=== PATIENT | male | born 1975 | race Caucasian/White ===

== ENCOUNTER 2022-05-07 17:40 | Emergency (ER) | payer BC, OTHER ==
[~2022-05-07] VITALS: Ht 187.9 cm; Wt 122.5 kg
[2022-05-07] MEDS ORDERED: NS IV 1000 ML 1,000 ML IV ONE (18:00)
[2022-05-07] MEDS ORDERED: IOHEXOL 350 MG/ML 100 ML (OMNIPAQUE 350) VIAL IV ONE (18:00)
[2022-05-07] MEDS ORDERED: NS 100 ML (IVPB) BAG IV ONE (18:00)
[2022-05-07] MEDS ORDERED: HOLD METFORMIN - RECEIVED CONTRAST 20 ML VIAL IV SCH (18:00)
[2022-05-07 18:04] LABS: BASOPHILS % (AUTO) 0 % (0-10); EOSINOPHILS # (AUTO) 0.1 10^3/uL (0.0-0.3); EOSINOPHILS % (AUTO) 1 % (0-10); HEMATOCRIT 42 % (40-54); HEMOGLOBIN 13.6 g/dL (13.3-17.7); LYMPHOCYTES # (AUTO) 3.6 10^3/uL (1.0-4.0); LYMPHOCYTES % (AUTO) 28 % (12-44); MEAN CORPUSCULAR HEMOGLOBIN 30 pg (25-34); MEAN CORPUSCULAR HGB CONC 33 g/dL (32-36); MEAN CORPUSCULAR VOLUME 91 fL (80-99); MONOCYTES # (AUTO) 0.8 10^3/uL (0.0-1.0); MONOCYTES % (AUTO) 7 % (0-12); NEUTROPHILS # (AUTO) 7.9 10^3/uL (1.8-7.8); NEUTROPHILS % (AUTO) 62 % (42-75); PLATELET COUNT 235 10^3/uL (130-400); WHITE BLOOD COUNT 12.8 10^3/uL (4.3-11.0)
[2022-05-07 18:08] LABS: POTASSIUM 3.9 MMOL/L (3.6-5.0)
[2022-05-07 18:10] LABS: CALCIUM 9.1 MG/DL (8.5-10.1)
[2022-05-07 18:11] LABS: TOTAL PROTEIN 7.1 GM/DL (6.4-8.2)
[2022-05-07 18:13] LABS: BILIRUBIN,TOTAL 0.3 MG/DL (0.1-1.0)
[2022-05-07 18:14] LABS: CREATININE SERUM 0.9 MG/DL (0.60-1.30)
[2022-05-07] MEDS ORDERED: fentaNYL INJ 100 MCG/2 ML AMP IVP ONE (18:30)
--- NOTE | 2022-05-07 18:30 | ED Trauma-Multisystem ---
General Chief Complaint: Trauma-Non Activation Stated Complaint: BACK PAIN Nursing Triage Note: ARRIVES TO ROOM 4 VIA EMS WITH A C/O BEING "HEADBUTTED BY A COW." A FEW TIMES. HAVING DIFFICULTY BREATHING EASILY IS CLAMMY AND SWEATING UPON ARRIVAL. [address] TO LEFT AC BY EMS, WARM FLUID INFUSING. Source of Information: Patient Exam Limitations: No Limitations (CHRIS PEOPLES MD) History of Present Illness Date Seen by Provider: May 07, 2022 Time Seen by Provider: 17:41 Initial Comments This 46-year-old gentleman presents to the emergency room via EMS after being head butted and pinned by a cow against concrete wall multiple times. 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 This cow weighing approximately 1000 pounds turned on him and knocked him to the ground. She then repeatedly head butted him in his head and torso against a brick wall. He has multiple abrasions and swollen contusions on his scalp. He complains of pain in the left lateral chest and upper abdomen. He has no significant extremity injuries. He denies any loss of consciousness. His reports that he appeared to nearly lose consciousness. He was given fentanyl 50 mcg in route by EMS. He reports the pain as 8/10. (CHRIS PEOPLES MD) Allergies and Home Medications Allergies Coded Allergies: No Known Drug Allergies (Unverified , 05/07/22) Patient Home Medication List Home Medication List Reviewed: Yes (CHRIS PEOPLES MD) Ondansetron (Ondansetron Odt) 4 Mg Tab.rapdis, 4 MG SL Q8H PRN for NAUSEA/VOMITING Prescribed by: VALARIE ARAUJO on 05/07/222113 Oxycodone HCl (Oxycodone HCl) 5 Mg Tablet, 5 MG PO Q6H PRN for PAIN-MODERATE TO SEVERE Prescribed by: VALARIE ARAUJO on 05/07/222113 Review of Systems Review of Systems Constitutional: no symptoms reported Eyes: No Symptoms Reported Ears: No Symptoms Reported Nose: No Symptoms Reported Mouth: No Symptoms Reported Throat: No Symptoms to Report Respiratory: no symptoms reported Cardiovascular: No Symptoms Reported Gastrointestinal: see HPI Genitourinary: no symptoms reported Musculoskeletal: see HPI Skin: see HPI Psychiatric/Neurological: See HPI (CHRIS PEOPLES MD) Past Pcvqhos-Siknal-Ulyejf Hx Patient Social History Tobacco Use?: No Use of E-Cig and/or Vaping dev: No Substance use?: No Alcohol Use?: Yes Alcohol type: Beer Alcohol Frequency: Couple times a week (CHRIS PEOPLES MD) Immunizations Up To Date Influenza Vaccine Up-to-Date: Yes; Up-to-Date First/Initial COVID19 Vaccinat: 21 Second COVID19 Vaccination Keith: 21 (CHRIS PEOPLES MD) Past Medical History Surgery/Hospitalization HX: htn, niddm Surgeries: No Respiratory: No Cardiac: Yes Hypertension Neurological: No Genitourinary: No Gastrointestinal: No Musculoskeletal: No Endocrine: Yes Diabetes, Non-Insulin dep HEENT: No Cancer: No Did You Recieve Any Treatments: No Psychosocial: No Integumentary: No (CHRIS PEOPLES MD) Physical Exam Vital Signs Vital Signs - First Documented 05/07/22 17:41 Pulse 85 Resp 16 B/P (MAP) 103/90 (94) Pulse Ox 97 O2 Delivery Room Air (VALARIE ARAUJO MD) Height, Weight, BMI Height: '" Weight: lbs. oz. kg; 34.00 BMI Method: General Appearance: No Apparent Distress, Mild Distress Head: Other (Multiple contusions and abrasions on the scalp) Ears, Nose, Throat: No Dental Injury, Other (Mild bruising at the bridge of the nose) Neck: Full Range of Motion, Normal Inspection, Non Tender Cardiovascular: Regular Rate, Rhythm, No Edema, No Murmur Respiratory: Lungs Clear, Normal Breath Sounds, No Accessory Muscle Use Gastrointestinal: Normal Bowel Sounds, Soft; No Distended; Tenderness (Upper abdomen) Extremity: Normal Inspection, No Pedal Edema Neurologic/Psychiatric: Alert, Oriented x3, No Motor/Sensory Deficits, Normal Mood/Affect Skin: Normal Color, Warm/Dry, Other (Abrasions on the scalp) (CHRIS WILSON MD) [place] Coma Score Best Eye Response (Gabriel): (4) Open Spontaneously Best Verbal Response (Gabriel): (5) Oriented Best Motor Response ([place]): (6) Obeys Commands [place] Total: 15 (CHRIS PEOPLES MD) Progress/Results/Core Measures Results/Orders Lab Results Laboratory Tests Test 05/07/22 17:45 05/07/22 19:20 Range/Units White Blood Count 12.8 H 4.3-11.0 10^3/uL Red Blood Count 4.60 4.30-5.52 10^6/uL Hemoglobin 13.6 13.3-17.7 g/dL Hematocrit 42 40-54 % Mean Corpuscular Volume 91 80-99 fL Mean Corpuscular Hemoglobin 30 25-34 pg Mean Corpuscular Hemoglobin Concent 33 32-36 g/dL Red Cell Distribution Width 13.5 10.0-14.5 % Platelet Count 235 130-400 10^3/uL Mean Platelet Volume 11.0 9.0-12.2 fL Immature Granulocyte % (Auto) 3 % Neutrophils (%) (Auto) 62 42-75 % Lymphocytes (%) (Auto) 28 12-44 % Monocytes (%) (Auto) 7 0-12 % Eosinophils (%) (Auto) 1 0-10 % Basophils (%) (Auto) 0 0-10 % Neutrophils # (Auto) 7.9 H 1.8-7.8 10^3/uL Lymphocytes # (Auto) 3.6 1.0-4.0 10^3/uL Monocytes # (Auto) 0.8 0.0-1.0 10^3/uL Eosinophils # (Auto) 0.1 0.0-0.3 10^3/uL Basophils # (Auto) 0.0 0.0-0.1 10^3/uL Immature Granulocyte # (Auto) 0.4 H 0.0-0.1 10^3/uL Sodium Level 139 135-145 MMOL/L Potassium Level 3.9 3.6-5.0 MMOL/L Chloride Level 102 98-107 MMOL/L Carbon Dioxide Level 25 21-32 MMOL/L Anion Gap 12 5-14 MMOL/L Blood Urea Nitrogen 18 7-18 MG/DL Creatinine 0.90 0.60-1.30 MG/DL Estimat Glomerular Filtration Rate 105 BUN/Creatinine Ratio 20 Glucose Level 126 H 70-105 MG/DL Calcium Level 9.1 8.5-10.1 MG/DL Corrected Calcium 9.1 8.5-10.1 MG/DL Total Bilirubin 0.3 0.1-1.0 MG/DL Aspartate Amino Transf (AST/SGOT) 26 5-34 U/L Alanine Aminotransferase (ALT/SGPT) 26 0-55 U/L Alkaline Phosphatase 87 40-136 U/L Total Protein 7.1 6.4-8.2 GM/DL Albumin 4.0 3.2-4.5 GM/DL Urine Color YELLOW Urine Clarity SL CLOUDY Urine pH 6.0 5-9 Urine Specific [place] 1.015 L 1.016-1.022 Urine Protein 2+ H NEGATIVE Urine Glucose (UA) 3+ H NEGATIVE Urine Ketones NEGATIVE NEGATIVE Urine Nitrite NEGATIVE NEGATIVE Urine Bilirubin NEGATIVE NEGATIVE Urine Urobilinogen 0.2 < = 1.0 MG/DL Urine Leukocyte Esterase NEGATIVE NEGATIVE Urine RBC (Auto) 3+ H NEGATIVE Urine RBC TNTC H /HPF Urine WBC 2-5 /HPF Urine Squamous Epithelial Cells NONE /HPF Urine Crystals NONE /LPF Urine Bacteria FEW H /HPF Urine Casts NONE /LPF Urine Mucus NEGATIVE /LPF Urine Culture Indicated YES (VALARIE ARAUJO MD) My Orders Orders - VALARIE ARAUJO MD Fentanyl Inj (Sublimaze Injection) (05/07/22 18:30) Dipht,Pertuss(Acell),Tet Adult (Boostrix (05/07/22 19:30) Oxycodone Immediate Rel Tablet (Oxyir Ta (05/07/22 19:30) Ondansetron Injection (Zofran Injectio (05/07/22 20:15) Rx-Oxycodone/Apap 5-325 Mg (Rx-Percocet (05/07/22 21:15) Rx-Ondansetron Po (Rx-Zofran Po) (05/07/22 21:15) (VALARIE ARAUJO MD) Medications Given in ED Current Medications Medications Dose Ordered Sig/Annabel Route Start Time Stop Time Status Last Admin Dose Admin Diphtheria/ Tetanus/Acell Pertussis 0.5 ml ONCE ONCE IM 05/07/22 19:30 05/07/22 19:31 DC 05/07/22 20:01 0.5 ML Fentanyl Citrate 50 mcg ONCE ONCE IVP 05/07/22 18:30 05/07/22 18:31 DC 05/07/22 18:35 50 MCG Iohexol 100 ml ONCE ONCE IV 05/07/22 18:00 05/07/22 18:01 DC 05/07/22 17:58 100 ML Ondansetron HCl 8 mg ONCE ONCE IVP 05/07/22 20:15 05/07/22 20:16 DC 05/07/22 20:13 8 MG Oxycodone HCl 10 mg ONCE ONCE PO 05/07/22 19:30 05/07/22 19:31 DC 05/07/22 20:00 10 MG Oxycodone/ Acetaminophen 1 ea Q6H PRN PO 05/07/22 21:15 05/07/22 21:42 DC 05/07/22 21:35 1 EA Sodium Chloride 100 ml ONCE ONCE IV 05/07/22 18:00 05/07/22 18:01 DC 05/07/22 17:58 80 ML Sodium Chloride 1,000 ml @ 0 mls/hr Q0M ONCE IV 05/07/22 18:00 05/07/22 18:01 DC 05/07/22 18:35 0 MLS/HR (VALARIE ARAUJO MD) Vital Signs/I&O 05/07/22 05/07/22 17:41 21:40 Pulse 85 92 Resp 16 20 B/P (MAP) 103/90 (94) 125/82 Pulse Ox 97 97 O2 Delivery Room Air Room Air 05/08/22 00:00 Intake Total 1400 ml Balance 1400 ml (VALARIE ARAUJO MD) Blood Pressure Mean: 94 Progress Progress Note : Time: 18:29 Progress Note Patient was interviewed and examined upon arrival. He declined anything further for pain control. He was alert and oriented. Due to the mechanism of injury and his pain level, CT imaging from head through pelvis was ordered. Care of this patient is being transitioned to Dr. Araujo at this time. 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 Patient was shoved up against a concrete wall by a full-size cow. No loss of consciousness reported. Patient complaining of the majority of pain in the left upper quadrant. Labs ordered prior to me assuming care include CBC, chemistry, urinalysis. Also CTs of the head and cervical spine ordered as well as CTs of the chest abdomen and pelvis with IV contrast. Physical examination pertinent for right temporoparietal scalp contusion, left forehead abrasion. Tenderness and pain to the left lateral chest and left upper quadrant. No c repitance to the chest wall. Breath sounds equal, respirations even and unlabored. Heart is regular. Mild amount of ecchymosis developing over the soft tissues of the left upper quadrant. Abdomen is soft, nondistended bowel sounds are present. Patient was not rolled, I did not palpate the spine this had been done prior to my arrival and was not repeated for patient comfort. P sneha is complaining of low back pain. No extremity pain, moves all extremities equally. No joint swelling or deformity. Labs reviewed, CBC normal with slightly elevated white blood cell count at 12,000. Chemistry unremarkable. Urinalysis positive for red blood cells. CT of the head and cervical spine unremarkable. CT of the chest abdomen and pelvis demonstrates left lateral rib 11 nondisplaced fracture. He has a 10% compression fracture at T12 with no retropulsed fragments. Also L2 left transverse process fracture nondisplaced. Also findings consistent with mild left kidney contusion. Patient's vital signs have been stable throughout, treated with IV pain medication, fentanyl as well as oral oxycodone. He was given Zofran for nausea as well as IV fluids. Patient achieved moderate relief of pain. Recommended close follow-up with his primary care physician. Pain medications and nausea medications sent for home. Work note for the next week provided. Return precautions given he verbalized understanding. Patient was able to ambulate from the department. (VALARIE ARAUJO MD) Diagnostic Imaging Diagonstic Imaging: CT Comments [facility], [place] NAME: MARCOS RAMIREZ [facility] REC#: [id number] PT STATUS: REG ER : 1975 PHYSICIAN: CHRIS PEOPLES MD ADMIT DATE: 05/07/22/ER Draft Date of Exam:05/07/22 CT HEAD/CERVICAL SPINE WO Clinical indication: Patient was head butted by a cow a few times. Patient having difficulty breathing. Exam: Head CT without IV contrast with sagittal and coronal reformations. Axial CT scan of the cervical spine with sagittal and coronal reformations. Auto Exposure Controls were utilized during the CT exam to meet ALARA standards for radiation dose reduction. Comparison: None. Findings: Head CT: There is no evidence of acute cerebral infarct, intracranial hemorrhage or gross mass effect. The brain parenchymal volume appears appropriate for patient's age. There is normal hendricks-white matter distinction. There is no significant midline shift or herniation. There is no evidence of hydrocephalus. The basal cisterns are unremarkable. There is a small amount of extracranial soft tissue swelling involving the left anterior aspect of the head and right lateral aspect of the head. There is no skull fracture. Otherwise, the skull, extracranial soft tissue and orbits are unremarkable. There is mild mucosal thickening involving both maxillary sinuses. Temporal bones show no significant abnormality. Cervical spine CT: There is no acute cervical spine fracture or dislocation. There are hypertrophic spurs involving the cervical spine and facet arthropathy. There is no significant bony central canal or neural foramen narrowing. There is no significant neck soft tissue abnormality. The visualized upper lung murcia are clear. Impression: 1: There is no evidence of acute intracranial process. There is no intracranial hemorrhage. 2: There are small areas of extracranial soft tissue swelling involving the left lateral anterior aspect of the head and right side of the head. There is no skull fracture. 3: There is cervical spine degenerative disease with no acute fracture or dislocation. Dictated on workstation # [id number] Dict: 05/07/221850 Trans: 05/07/221856 [facility] [id number] Interpreted by: CARLOS WHITEHEAD MD Electronically signed by: Diagonstic Imaging: CT Comments [facility], [place] NAME: MARCOS RAMIREZ [facility] REC#: [id number] PT STATUS: DEP ER : 1975 PHYSICIAN: CHRIS PEOPLES MD ADMIT DATE: 05/07/22/ER Signed Date of Exam:05/07/22 CT CHEST/ABDOMEN/PELVIS W CLINICAL INDICATION: Patient being head butted by a cow a few times. Patient having difficulty breathing. EXAM: Axial CT scan of the chest, abdomen and pelvis performed with 100 mL of Omnipaque 300 IV contrast. Sagittal and coronal reformatted images were created. COMPARISON: None. FINDINGS: There is atelectasis involving the posterior aspects of both lungs with right side more than the left. Otherwise, lungs are clear. There is no pleural effusion or pneumothorax. Mediastinal structures are unremarkable with no hematoma. Vascular structures are unremarkable. The extrathoracic soft tissue is unremarkable. The liver, spleen, pancreas, gallbladder and adrenal glands are unremarkable. There are subtle amorphous low-density areas involving the posterolateral aspect of the mid and upper left kidney. There is mild fat stranding within left Gerota's fascia. This may represent small kidney contusions. Otherwise, both kidneys are unremarkable. There is no intra-abdominal free air or free fluid. There is no intestinal obstruction. There is no lymphadenopathy. There is no significant extra-abdominal soft tissue abnormality seen near the left kidney region. There is a roughly 10% compression fracture deformity involving the upper aspect of the T12 vertebra. There is no other thoracic or lumbar spine fracture seen. There is a subtle fracture involving the left L2 transverse process. There is concern for a subtle fracture involving the posterior aspect of the left T11 rib. There is a subtle fracture involving the lateral aspect of the T9 rib laterally which is seen on the sagittal reformatted images. There is no other fracture seen on this exam. IMPRESSION: 1: There is a mild acute compression fracture deformity involving the upper aspect of T12 vertebra. There is no retropulsed fracture component. 2: There is a subtle fracture involving the left L2 transverse process. 3: There is a subtle fracture involving the lateral aspect of the left T11 rib. 4: There is very subtle amorphous small low-density areas involving the posterior lateral aspect of the mid to inferior left kidney which may represent renal contusions. There is minimal fat stranding in left Gerota's fascia seen. 5: Atelectasis in both lung bases is seen. There is no pneumothorax. 6: There is no other injury seen on this exam. Dictated by: Dictated on workstation # [id number] Dict: 05/07/221854 Trans: 05/07/222315 [facility] [id number] Interpreted by: CARLOS WHITEHEAD MD Electronically signed by: CARLOS WHITEHEAD MD 05/07/222315 (VALARIE ARAUJO MD) Departure Impression Primary Impression: T12 compression fracture Qualified Codes: S22.080A - Wedge compression fracture of T11-T12 vertebra, initial encounter for closed fracture Additional Impressions: 11th rib fracture Lumbar transverse process fracture Qualified Codes: S32.009A - Unspecified fracture of unspecified lumbar vertebra, initial encounter for closed fracture Contusion of kidney Qualified Codes: S37.012A - Minor contusion of left kidney, initial encounter Head injury Qualified Codes: S09.90XA - Unspecified injury of head, initial encounter Scalp abrasion Qualified Codes: S00.01XA - Abrasion of scalp, initial encounter Disposition: HOME, SELF-CARE Condition: Stable Departure-Patient Inst. Decision time for Depature: 21:10 (VALARIE ARAUJO MD) Referrals: CHULA BOYKIN MD (PCP/Family) Primary Care Physician Patient Instructions: Vertebral Compression Fracture, Skin Abrasions, Head Injury in Adults Add. Discharge Instructions: Drink lots of water over the next couple of days to stay well-hydrated. This will also help with muscle aches and pains. Ice packs to the sore areas of your back, left side and scalp. You can do this for several days and then in a week or 2 heat may help. Oxycodone 5 mg every 4-6 hours as needed for severe pain. Otherwise ibuprofen 600 mg every 6 hours with food to help you get through the day. Keep in mind that opiate pain medications such as oxycodone can be very addictive. Do not drive and take these medications. If you are having to take oxycodone daily please take stool softeners to avoid constipation. Zofran 4 mg every 6-8 hours as needed for nausea. If you have any new, concerning or emergent complaints, start urinating blood, become short of breath or anything else please return to the emergency room for reevaluation. Scripts Ondansetron (Ondansetron Odt) 4 Mg Tab.rapdis 4 MG SL Q8H PRN for NAUSEA/VOMITING, #20 TAB Prov: VALARIE ARAUJO MD 05/07/22 Oxycodone HCl (Oxycodone HCl) 5 Mg Tablet 5 MG PO Q6H PRN for PAIN-MODERATE TO SEVERE, #20 TAB Prov: VALARIE ARAUJO MD 05/07/22 Copy Copies To 1: CHULA BOYKIN MD, JOSHUA T MD May 07, 2022 18:30 VALARIE ARAUJO MD May 07, 2022 19:19
--- NOTE | 2022-05-07 18:58 | Diagnostic Imaging Report ---
Clinical indication: Patient was head butted by a cow a few times. Patient having difficulty breathing. Exam: Head CT without IV contrast with sagittal and coronal reformations. Axial CT scan of the cervical spine with sagittal and coronal reformations. Auto Exposure Controls were utilized during the CT exam to meet ALARA standards for radiation dose reduction. Comparison: None. Findings: Head CT: There is no evidence of acute cerebral infarct, intracranial hemorrhage or gross mass effect. The brain parenchymal volume appears appropriate for patient's age. There is normal hendricks-white matter distinction. There is no significant midline shift or herniation. There is no evidence of hydrocephalus. The basal cisterns are unremarkable. There is a small amount of extracranial soft tissue swelling involving the left anterior aspect of the head and right lateral aspect of the head. There is no skull fracture. Otherwise, the skull, extracranial soft tissue and orbits are unremarkable. There is mild mucosal thickening involving both maxillary sinuses. Temporal bones show no significant abnormality. Cervical spine CT: There is no acute cervical spine fracture or dislocation. There are hypertrophic spurs involving the cervical spine and facet arthropathy. There is no significant bony central canal or neural foramen narrowing. There is no significant neck soft tissue abnormality. The visualized upper lung murcia are clear. Impression: 1: There is no evidence of acute intracranial process. There is no intracranial hemorrhage. 2: There are small areas of extracranial soft tissue swelling involving the left lateral anterior aspect of the head and right side of the head. There is no skull fracture. 3: There is cervical spine degenerative disease with no acute fracture or dislocation. Dictated by: Dictated on workstation # [id number]
--- NOTE | 2022-05-07 19:12 | Diagnostic Imaging Report ---
CLINICAL INDICATION: Patient being head butted by a cow a few times. Patient having difficulty breathing. EXAM: Axial CT scan of the chest, abdomen and pelvis performed with 100 mL of Omnipaque 300 IV contrast. Sagittal and coronal reformatted images were created. COMPARISON: None. FINDINGS: There is atelectasis involving the posterior aspects of both lungs with right side more than the left. Otherwise, lungs are clear. There is no pleural effusion or pneumothorax. Mediastinal structures are unremarkable with no hematoma. Vascular structures are unremarkable. The extrathoracic soft tissue is unremarkable. The liver, spleen, pancreas, gallbladder and adrenal glands are unremarkable. There are subtle amorphous low-density areas involving the posterolateral aspect of the mid and upper left kidney. There is mild fat stranding within left Gerota's fascia. This may represent small kidney contusions. Otherwise, both kidneys are unremarkable. There is no intra-abdominal free air or free fluid. There is no intestinal obstruction. There is no lymphadenopathy. There is no significant extra-abdominal soft tissue abnormality seen near the left kidney region. There is a roughly 10% compression fracture deformity involving the upper aspect of the T12 vertebra. There is no other thoracic or lumbar spine fracture seen. There is a subtle fracture involving the left L2 transverse process. There is concern for a subtle fracture involving the posterior aspect of the left T11 rib. There is a subtle fracture involving the lateral aspect of the T9 rib laterally which is seen on the sagittal reformatted images. There is no other fracture seen on this exam. IMPRESSION: 1: There is a mild acute compression fracture deformity involving the upper aspect of T12 vertebra. There is no retropulsed fracture component. 2: There is a subtle fracture involving the left L2 transverse process. 3: There is a subtle fracture involving the lateral aspect of the left T11 rib. 4: There is very subtle amorphous small low-density areas involving the posterior lateral aspect of the mid to inferior left kidney which may represent renal contusions. There is minimal fat stranding in left Gerota's fascia seen. 5: Atelectasis in both lung bases is seen. There is no pneumothorax. 6: There is no other injury seen on this exam. Dictated by: Dictated on workstation # [id number]
[2022-05-07 19:28] LABS: BILIRUBIN,URINE NEGATIVE (NEGATIVE); CLARITY,URINE SL CLOUDY; COLOR,URINE YELLOW; GLUCOSE, URINE (UA) 3+ (NEGATIVE); KETONES,URINE NEGATIVE (NEGATIVE); LEUKOCYTE ESTERASE ,URINE NEGATIVE (NEGATIVE); NITRITE,URINE NEGATIVE (NEGATIVE); PROTEIN,URINE 2+ (NEGATIVE)
[2022-05-07] MEDS ORDERED: TETANUS,DIPTH,PERTUSS P/F (BOOSTRIX) 0.5 ML VIAL IM ONE (19:30)
[2022-05-07 19:38] LABS: BACTERIA,URINE FEW /HPF; RBC,URINE TNTC /HPF
[2022-05-07] MEDS ORDERED: ONDANSETRON 4 MG/2 ML (SDV) Z0FRAN IVP ONE (20:15)
[2022-05-07] MEDS ORDERED: OXYC5TAB PO (21:14)
[2022-05-07] MEDS ORDERED: ONDA4TAB11 SL (21:14)
[2022-05-07] MEDS ORDERED: RX-ONDANSETRON 4 MG ODT (ZOFRAN) PPK #4 PO STA (21:15)
[2022-05-07] MEDS ORDERED: RX-OXYCODONE/APAP 5-325 MG #4 TAB PK PO PRN (21:15)
[2022-05-07 21:40] VITALS: BP 125/82
== END 2022-05-07 21:40 | disposition home or self-care (01) ==
LOC: ER 17:41
DX: S09.90XA Unspecified injury of head, initial encounter (principal); S22.088A Other fracture of T11-T12 vertebra, initial encounter for closed fracture; S22.32XA Fracture of one rib, left side, initial encounter for closed fracture; S32.028A Other fracture of second lumbar vertebra, initial encounter for closed fracture; S37.012A Minor contusion of left kidney, initial encounter; S00.03XA Contusion of scalp, initial encounter; S00.33XA Contusion of nose, initial encounter; S00.81XA Abrasion of other part of head, initial encounter; D72.829 Elevated white blood cell count, unspecified; Z23 Encounter for immunization; W55.22XA Struck by cow, initial encounter
CPT/HCPCS: 36415; 70450; 71260; 72125; 74177; 80053; 81000; 85025; 87088; 90715